=== PATIENT | male | born 1975 ===

== ENCOUNTER 2020-12-14 05:32 | Day surgery (SDC) | payer OTHER ==
[~2020-12-14 05:32] MED LIST: CLONAZEPAM1 MG PO; LEVO-T100 MCG PO
[2020-12-14] MEDS ORDERED: ULTRACET PO (10:46)
[2020-12-14] MEDS ORDERED: KETO10TA2 PO (10:47)
== END 2020-12-14 16:40 | disposition home or self-care (01) ==
LOC: CIR.AMB 05:32
PROVIDERS: ATTEND Surgery
DX: K81.1 Chronic cholecystitis (principal); Z20.822 Contact with and (suspected) exposure to COVID-19